=== PATIENT | male | born 1995 | race Caucasian/White ===

== ENCOUNTER 2020-11-15 15:15 | Emergency (ER) | payer SELFPAY ==
[2020-11-15 15:26] VITALS: BP 137/86; PULSE 128; RESP 20; TEMP 36.9; O2SAT 100
--- NOTE | 2020-11-15 18:41 | PC.NURSE ---
pt heard yelling in lobby, this is fucking ridiculous. fuck this hospital. security called d/t pt being disruptive.
--- NOTE | 2020-11-15 18:52 | PC.NURSE ---
security called again d/t patient cussing and yelling in lobby.
--- NOTE | 2020-11-15 18:55 | PC.NURSE ---
this RN to pt in waiting room d/t multiple patients c/o feeling unsafe and one patient crying. pt informed that cursing and yelling will not be tolerated. pt yelling this is fucking ridiculous. why do these doctors lie to me. I want this shit fixed on my foot. pt again asked to not curse and lower voice. pt told that if he continued to be disruptive that PD would be called to have him removed. security to stay in lobby per this RN request.
--- NOTE | 2020-11-15 19:04 | PC.NURSE ---
pt amb out of ed with brisk, steady gait yelling curse words at this RN. pt asked if he was leaving and he replied, yeah this is fucking ridiculous
== END 2020-11-15 19:04 | disposition left against medical advice (07) ==
PROVIDERS: PCP Family Medicine
DX: L98.9 Disorder of the skin and subcutaneous tissue, unspecified (principal)
CPT/HCPCS: 99199

== ENCOUNTER 2023-01-08 11:25 | Emergency (ER) | payer MEDICAID, SELFPAY ==
--- NOTE | ~2023-01-08 | XR_ITS ---
EXAM: XR hand RT min 3V DATE: 01/08/2023 14:17 HISTORY: RT 3RD finger infection, r/O FB, LAC BY METAL 3RD DISTAL . COMPARISON: None available. FINDINGS: Normal mineralization. No fracture or dislocation. No lytic or blastic lesion. Joint space s are maintained. No erosion or periosteal change. Punctate radio-opacity in the superficial anterola teral soft tissues of the distal third digit. IMPRESSION: No radiographic evidence of osteomyelitis. Punctate radiopacity in the superficial anterolateral soft tissues of the distal third digit. Reviewed, dictated and finalized at location [facility] IMPRESSION: No radiographic evidence of osteomyelitis. Punctate radiopacity in the superficial anterolateral soft tissues of the dista l third digit.
[2023-01-08 13:17] VITALS: BP 117/77; PULSE 117; RESP 20; TEMP 36.2; O2SAT 99
--- NOTE | 2023-01-08 14:10 | ED.GENADULT ---
HPI - General Adult General Chief complaint: Wound/Laceration Stated complaint: finger infection Time Seen by Provider: 01/08/23 13:56 Source: patient Mode of arrival: ambulatory Limitations: no limitations History of Present Illness HPI narrative: This is a 27-year-old male who presents to the ED with chief complaint right 3rd finger pain x3 days. Reports an initial injury where he cut it on some potentially krystle metal wire. Since then the pain and swelling to the distal right 3rd finger has increased. Reports some redness to the dorsum of the finger. He is unsure if tetanus up-to-date. Denies fevers, chills, nausea, vomiting, numbness, weakness. Related Data Allergies Allergy/AdvReac Type Severity Reaction Status Date / Time amoxicillin Allergy Intermediate Unknown Verified 01/08/23 14:23 Penicillins Allergy Intermediate Unknown Verified 01/08/23 14:23 ziprasidone [From Geodon] Allergy Muscle Verified 01/08/23 14:23 Spasms Review of Systems Review of Systems: All systems as dictated in HPI Exam Narrative: GENERAL: Well-appearing, well-nourished, and in no acute distress. HEAD: Normocephalic, atraumatic. EYES: PERRLA and EOMI. ENT: Nares clear, no rhinorrhea or epistaxis. Mucous membranes moist. Oropharynx without tonsillar hypertrophy exudate or other lesions. NECK: Supple. No adenopathy or masses. CHEST: No respiratory distress. Clear to auscultation. No wheezes rales or rhonchi HEART: Regular rate and rhythm. No murmur heard. Normal peripheral pulses. ABDOMEN: Soft, nontender, nondistended, normal active bowel sounds. MSK: Range of motion of the right 3rd finger reduced with flexion. Able to fully extend the finger actively. No tenderness along the flexor tendon. Overall negative Kanavel signs. SKIN: 2 small healing lacerations to the dorsum of the right 3rd finger distally. No drainage. No fluctuance or induration. Mild erythema surrounding the wounds. Tenderness throughout the right 3rd finger from the DIP distally. NEURO: Alert and oriented x3. No focal deficits. PSYCH: Normal mood and affect. Course Vital Signs Vital signs: Vital Signs Temperature 97.1 F L 01/08/23 13:17 Pulse Rate 117 H 01/08/23 13:17 Respiratory Rate 20 01/08/23 13:17 Blood Pressure 117/77 01/08/23 13:17 Pulse Oximetry 99 01/08/23 13:17 Temperature 97.1 F L 01/08/23 13:17 Pulse Rate 117 H 01/08/23 13:17 Respiratory Rate 20 01/08/23 13:17 Blood Pressure 117/77 01/08/23 13:17 Pulse Oximetry 99 01/08/23 13:17 Medical Decision Making MDM Narrative Medical decision making narrative: This is a 27-year-old male who presents to the ED with chief complaint of right 3rd finger pain and swelling for the past 3 days. Reports that he cut it on a dirty fence wire. Vitals show initial slight tachy minimal stable. Afebrile. Exam reveals an pain and swelling past the PIP on the right 3rd finger. Kanavel signs for flexor tenosynovitis are negative. Normal CBC and CRP. CMP also unremarkable. X-ray shows small punctate foreign body superficially to anterolateral right 3rd finger. Presentation consistent with cellulitis. I discussed this foreign body present with the patient and he would like to over any kind of attempt at removal. He would like to take antibiotics for the infection. He was given Ancef here and fluids here. Prescription for Keflex given. Pt will be discharged in stable condition. Return precautions given and supportive measures discussed. Pt is understanding and agreeable with plan for discharge and follow-up with PCP. Vital Signs Vital Signs: Vital Signs Temperature 97.1 F L 01/08/23 13:17 Pulse Rate 117 H 01/08/23 13:17 Respiratory Rate 20 01/08/23 13:17 Blood Pressure 117/77 01/08/23 13:17 Pulse Oximetry 99 01/08/23 13:17 Temperature 97.1 F L 01/08/23 13:17 Pulse Rate 117 H 01/08/23 13:17 Respiratory Rate 20 01/08/23 13:17 Blood Pres
[2023-01-08] MEDS: KETOROLAC 15 MG/ML VIAL (*BKC) IV PUSH (14:26)
[2023-01-08] MEDS: SODIUM CHLORIDE 0.9% IV 1,000 ML 999 ML IV CONT (14:26)
[2023-01-08 14:39] LABS: Basophils Absolute Auto 0.1 K/mm3 (0.0-0.1); Basophils Percent Auto 1.9 % (0.2-1.2); Eosinophils Absolute Auto 0.1 K/mm3 (0-0.3); Eosinophils Percent Auto 1.4 % (0-4.4); Hematocrit 47.8 % (42.0-52.0); Hemoglobin 16.4 g/dL (14.0-18.0); Immature Granulocyte Absolute 0.02 K/mm3 (0.00-0.031); Immature Granulocyte Percent A 0.3 % (0-0.5); Lymphocytes Percent Auto 41.8 % (18.3-44.2); Mean Corpuscular HGB Conc 34.3 g/dl (32-36); Mean Corpuscular Hemoglobin 30.7 pg (26-34); Mean Corpuscular Volume 89.5 fl (80-100); Mean Platelet Volume 10.7 fl (7.4-10.4); Monocytes Absolute Auto 1.1 K/mm3 (0.1-0.6); Monocytes Percent Auto 16.4 % (2.6-8.5); Neutrophils Absolute Auto 2.5 K/mm3 (1.3-6.7); Neutrophils Percent Auto 38.2 % (45.5-73.1); Platelet Count Result 354 k/mm3 (150-375); Red Blood Count 5.34 M/mm3 (4.6-6.20); White Blood Count 6.5 K/mm3 (4.5-10.0)
[2023-01-08 14:50] LABS: Alanine Aminotransferase 29 U/L (6-50); Albumin Level 4.8 g/dL (3.5-5.1); Alkaline Phosphatase 70 U/L (38-126); Anion Gap 12 mmol/L (8-16); Aspartate Amino Transferase 34 U/L (17-59); Bilirubin,Total 0.8 mg/dL (0.2-1.3); Blood Urea Nitrogen 6 mg/dL (9-20); Calcium 9.8 mg/dL (8.4-10.2); Carbon Dioxide 25 mmol/L (22-30); Chloride 103 mmol/L (98-107); Estimated CRCL calculation 95 ml/min; Estimated Glomerular Filt Rate > 60; Glucose 99 mg/dL (65-110); Potassium 3.7 mmol/L (3.4-5.0); Sodium 140 mmol/L (137-145)
[2023-01-08 14:53] LABS: CRP < 0.5 mg/dL (<1.0)
[2023-01-08] MEDS: ceFAZolin 1 GM/NS 50 ML 1 GM/50 ML BAG IVPB (15:12)
== END 2023-01-08 15:53 | disposition home or self-care (01) ==
PROVIDERS: Emergency Provider Physician Assistant
DX: L03.011 Cellulitis of right finger (principal)
CPT/HCPCS: 36415; 73130; 80053; 85025; 86140; 96361; 96365; 96375; 99284; J0690; J1885; J7030